=== PATIENT | female | born 2005 | race Caucasian/White ===

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

== ENCOUNTER 2024-02-21 18:46 | Emergency (ER) | payer BC, SELFPAY ==
[2024-02-21 18:50] VITALS: BP 139/69; PULSE 105; RESP 28; TEMP 36.9; O2SAT 97; BMI 29.8
--- NOTE | 2024-02-21 19:03 | ED.ALLEREA ---
HPI - Allergic Reaction General Chief complaint: Allergic Reaction Stated complaint: Peanut allergy, ate nuts, took epi, diff breathing Time Seen by Provider: 02/21/24 18:48 History of Present Illness HPI narrative: This 18-year-old female comes in because of an allergic reaction. She states that she was eating some chocolate ice cream in began to feel some tightness in her throat. She reports a history of allergy to peanuts and does carry an EpiPen. She did administer epinephrine prior to arrival here and comes in for observation. She arrives with normal vital signs except for mild tachycardia and tachypnea. She does endorse some anxiety symptoms relating to all this. She is not showing any sign of rash or angioedema and has normal blood pressure. Related Data Home Medications ?Medication ?Instructions ?Recorded ?Confirmed epinephrine 0.3 mg/0.3 mL 0.3 ml IM Q5-15M PRN 03/04/23 04/12/23 injection, auto-injector (EpiPen) fluoxetine 20 mg capsule 30 mg PO DAILY 03/04/23 04/12/23 Previous Rx's ?Medication ?Instructions ?Recorded methylprednisolone 4 mg tablets in See Rx Instructions PO .COMPLEX 02/21/24 a dose pack (Medrol (Kadeem)) #21 ea Allergies Allergy/AdvReac Type Severity Reaction Status Date / Time peanut Allergy Severe Anaphylaxis Verified 04/12/23 14:53 soy Allergy Severe Anaphylaxis Verified 04/12/23 14:53 Review of Systems Status of ROS Reports: 10 or more systems reviewed and unremarkable except as noted in History and below Narrative Constitutional: No fevers, no weight gain or loss. Eyes: No discharge. No vision changes. HENT: No congestion, no sore throat, no ear pain. Cardiovascular: No chest pain, no palpitations. Respiratory: No shortness of breath, no wheezes, no cough. Gastrointestinal: No abdominal pain, no vomiting, no diarrhea. Genitourinary: No dysuria, no hematuria. Musculoskeletal: Normal range of motion. Skin: No rashes, no pruritis. Neurological: No dizziness, weakness, sensory change, speech change. Endo/Heme/Allergies: No bruising or bleeding. No polydipsia. Pysch: no suicidality, no insomnia. All other systems reviewed and are negative. PFSH PFSH Social History Smoking Status: Never smoker Do you use any of these nicotine containing products: None Second hand tobacco smoke exposure: No How often do you have a drink containing alcohol: never AUDIT-C Alcohol total score: 0 Non-prescribed substance use: denies use Exam Narrative: Exam Narrative: Constitutional: Well-developed, well-nourished, no acute distress. HEENT: Normocephalic, atraumatic. Neck: Normal range of motion. Nontender. Supple. Heart: Intact distal pulses. Lungs: No chest discomfort. No wheezes, rhonchi, or rales. Abdomen: Nontender. Back: Normal range of motion. Extremities: Normal range of motion. No injury. Skin: Intact. No rash. Warm. No erythema or pallor. Neurologic: No altered sensation. No weakness. Alert and oriented. Psychiatric: No suicidality. No anxiety or depression. No insomnia. Nursing notes and vitals signs are reviewed. Const: Vital Signs, click to edit/add: Vital Signs - 24 hr 02/21/24 18:50 Temperature 98.4 F Pulse Rate [Pulse Oximeter] 105 H Respiratory Rate 28 H Blood Pressure [Ri ght Upper Arm] 139/69 Pulse Oximetry 97 Oxygen Delivery Me thod Room Air Course Vital Signs Vital signs: Initial Vital Signs Temperature 98.4 F 02/21/24 18:50 Temperature Source Temporal Artery Scan 02/21/24 18:50 Pulse Rate 105 H 02/21/24 18:50 Respiratory Rate 28 H 02/21/24 18:50 Blood Pressure 139/69 02/21/24 18:50 Blood Pressure Mean 92 02/21/24 18:50 Blood Pressure Position Supine 02/21/24 18:50 Pulse Oximetry 97 02/21/24 18:50 Oxygen Delivery Method Room Air 02/21/24 18:50 Vital Signs Temperature 98.4 F 02/21/24 18:50 Pulse Rate 105 H 02/21/24 18:50 Respiratory Rate 28 H 02/21/24 18:50 Blood Pressure 139/69 02/21/24 18:50 Pulse Oximetry 97 02/21/24 18:50 Oxygen Delivery Method Room Air 02/21/24 18:50 Temperature 98.4 F 02/21/24 18:50 Pulse Rate 105 H 02/21/24 18:50 Respiratory Rate 28 H 02/21/24 18:50 Blood Pressure 139/69 02/21/24 18:50 Pulse Oximetry 97 02/21/24 18:50 Oxygen Delivery Method Room Air 02/21/24 18:50 MDM - Allergic Reaction MDM Narrative Medical decision making narrative: This patient comes in with possibility of a reaction due food. She reports an allergy to peanuts and did not take any peanuts but was instead eating chocolate ice cream and began to have some symptoms that triggered anxiety. She administered epinephrine prior to arrival and comes in here with normal vital signs. 2 attempts were made at placing an IV and then this was discontinued. Patient did receive oral doses of Benadryl 25 mg and dexamethasone 10 mg. She will be observed for 4 hours at her request. She should be okay to return home. Discharge Plan Discharge Clinical Impression: Allergic reaction Patient Disposition: Home, Self-Care Condition: Stable Additional Instructions: Take medication as prescribed and needed. Follow up with MD return if worsening. Prescriptions: New methylprednisolone [Medrol (Kadeem)] 4 mg tablets,dose pack See Rx Instructions .ROUTE .COMPLEX Qty: 21 0RF Rx Instructions: orally per package directions No Action epinephrine [EpiPen] 0.3 mg/0.3 mL auto-injector 0.3 ml IM Q5-15M PRN Rx Instructions: do not exceed 3 doses per episode fluoxetine 20 mg capsule 30 mg PO DAILY Follow Up/Referrals: Provider,Not a Local [Primary Care Provider] - Stand Alone Forms: [employer] Info Instructions
[2024-02-21] MEDS: diphenhydrAMINE 25 MG CAPSULE PO (19:12)
[2024-02-21] MEDS: dexAMETHasone 10 MG/ML inj PO (19:12)
[2024-02-21 19:21] VITALS: PULSE 82; O2SAT 99
[2024-02-21 19:30] VITALS: PULSE 67; O2SAT 99
[2024-02-21] MEDS: FAMOTIDINE 20 MG TABLET PO (19:36)
[2024-02-21 19:46] VITALS: RESP 20
[2024-02-21 19:57] VITALS: PULSE 70; O2SAT 100
[2024-02-21 20:38] VITALS: PULSE 83; RESP 20; O2SAT 100
--- NOTE | 2024-02-21 21:27 | ED.NURSE ---
Patient reports feeling better and requesting to discharge home.
== END 2024-02-21 21:28 | disposition home or self-care (01) ==
LOC: ED 19:32
PROVIDERS: Emergency Provider Emergency Medicine Emergency Medical Services
DX: T78.1XXA Other adverse food reactions, not elsewhere classified, initial encounter (principal)
CPT/HCPCS: 99283; 99285; A9270; J1100

== ENCOUNTER 2024-06-04 23:13 | Emergency (ER) | payer BC, SELFPAY ==
--- OUTSIDE RECORDS SUMMARY | 2024-06-04 23:15 | XMS_ITS | Clinical Summary ---
Author Organization [facility] Address [address] [place] [id number] Care Team Providers Care Director Writing Name Role Phone Pooja Lee Primary Care Provider Unava ilable Allergies Active Allergy Reactions Criticality Noted Date Comments Peanut Hives,Nausea Only 06/03/2011 Soybean Oil Other - Describe In Comment Field 0 09/24/2017 Medications budesonide (PULMICORT FLEXHALER) 180 mcg/Inhalation inhaler Inhale 180 mcg by mouth 2 times daily. 1 Inhaler 0 2 Active albuterol (PROVENTIL; VENTOLIN) 90 mcg/actuation inhaler Inhale 2 Puffs by mouth 4 times daily. 0 2 Active EPINEPHrine (EPIPEN) 0.3 mg/0.3 mL injection 0 Active FLUoxetine (PROZAC) 10 mg capsule Take 10 mg by mouth. Active EPINEPHrine (EPIPEN) 0.3 mg/0.3 mL injectionIndic ations:Allergi c reaction, initial encounter Inject 0.3 mg intramuscular one time if needed for Allergic Reaction (use in case of severe allergic reaction) for up to 1 dose. 2.07 Each 1 Active Active Problems Problem Noted Date Diagnosed Date Asthma Anaphylaxis Encounters Date Type Department Care Team Description 04/04/2024 Travel from Last 3 Months Family History Medical History Relation Name Comments Cancer Father Cancer-breast No Family History Cancer-colon No Family History Cancer-ovarian No Family History Relation Name Status Comments Father Social History Tobacco Use Types Packs/Day Years Used Date Smoking Tobacco: Never Smokeless Tobacco: Never Alcohol Use Standard Drinks/Week Comments No 0 (1 standard drink = 0.6 oz pur e alcohol) Social Connections Answer Date Recorded Frequency of Communication with Friends and Fami ly Not on file 04/09/2021 Financial Resource Strain Answer Date R ecorded Difficulty of Paying Living Expenses Not on file 04/09/2021 Difficulty of Paying Living Expenses Not on file 04/09/2021 Comments No Sex and Gender Information Value Date Recorded Sex Assigned at Not on file 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 Gender Identity Not on file Sexual Orientation Not on file Obstetrics History Last Filed Vital Signs Vital Sign Reading Time Taken Comments Blood Pressure 133/75 09/24/2023 9:48 PM CDT Pulse 69 09/24/2023 9:48 PM CDT Temperature 36.8 C (98.3 F) 09/24/2023 9:48 PM CDT Respiratory Rate 18 09/24/2023 9:48 PM CDT Oxygen Saturation 99% 09/24/2023 9:48 PM CDT Inhaled Oxygen Concentration - - Weight 87.3 kg (192 lb 8 oz) 09/24/2023 9:48 PM CDT Height 171.5 cm (5' 7.5) 09/24/2023 9:48 PM CDT Body Mass Index 29.7 09/24/2023 9:48 PM CDT Plan of Treatment Health Maintenance Due Date Last Done Comments Well Child Check for age 3-20 02/28/2007 Tdap 2015 Depression screening for age 12+ 2016 HIV for age 15-65 2019 HPV series for age 9-26 (1 - 3-dose series) 2019 BMI (ht and wt on same day) for age 18+ 2022 Hepatitis C screening for age 18-79 2022 COVID-19 vaccine series ( season) 2023 01/10/2023, 04/22/2021, 09/11/2020, Additional history exists Influenza for age 9-49 12/09/2023 Tetanus booster 2024 Meningococcal series for age 11-21 Aged Out No longer eligible based on patient's age to complete this topic Pneumococcal series for age 6-49 Aged Out No longer eligible based on patient's age to complete this topic Insurance BLUE CROSS OF NON-NM-ITS Care Teams Director Writing Relationship Specialty Start Date End Date Pooja Lee PA [address] [facility] [address] [place] [address] PCP - General Physician Apartment Leasing Manager 03/08/15
[2024-06-04 23:33] VITALS: BP 133/77; PULSE 75; RESP 16; TEMP 36.6; O2SAT 98; BMI 29.8
[2024-06-04] MEDS: ONDANSETRON ODT 4 MG TAB PO (23:33)
[2024-06-05 00:20] VITALS: TEMP 36.6
[2024-06-05] MEDS: LACTATED RINGERS 1000 ML 1,000 ML 2000 ML IV (00:20)
[2024-06-05] MEDS: KETOROLAC 15 MG/ML inj IVP (00:20)
--- NOTE | 2024-06-05 00:20 | ED.GENADULT ---
HPI - General Adult General Chief complaint: Nausea/Vomiting Stated complaint: Vomiting Time Seen by Provider: 06/05/24 00:01 Source: patient Mode of arrival: ambulatory Limitations: no limitations History of Present Illness HPI narrative: 19-year-old female presents the emergency department for evaluation of nausea and vomiting with mild epigastric area abdominal pain. No trauma or injury. Friend with similar symptoms. Lots of norovirus in the community right now. No fever. No prior history of GI surgeries. No history of pancreatitis, excessive alcohol use or cannabis use. Symptoms initially started about 18 hours ago and had a couple bouts of vomiting early in the morning but then symptoms improved. Return this evening. Has not tried any [id number] medications to help with symptoms. No bloody vomit, no diarrhea, no bloody stools. Not prone to episodes of this nature. Past medical history notable for depression and anxiety. Reports use of fluoxetine 30 mg once daily as her only home medication. Nonsmoker. Allergies to peanuts and soy. ROS is notable for GI symptoms as above only, otherwise denies times 12 systems. Related Data Home Medications ?Medication ?Instructions ?Recorded ?Confirmed epinephrine 0.3 mg/0.3 mL 0.3 ml IM Q5-15M PRN 03/04/23 04/12/23 injection, auto-injector (EpiPen) fluoxetine 20 mg capsule 30 mg PO DAILY 03/04/23 04/12/23 Previous Rx's ?Medication ?Instructions ?Recorded methylprednisolone 4 mg tablets in See Rx Instructions PO .COMPLEX 02/21/24 a dose pack (Medrol (Kadeem)) #21 ea Allergies Allergy/AdvReac Type Severity Reaction Status Date / Time peanut Allergy Severe Anaphylaxis Verified 04/12/23 14:53 soy Allergy Severe Anaphylaxis Verified 04/12/23 14:53 [facility] Social History Smoking Status: Never smoker Do you use any of these nicotine containing products: None Second hand tobacco smoke exposure: No How often do you have a drink containing alcohol: never AUDIT-C Alcohol total score: 0 Non-prescribed substance use: denies use Exam Const: Vital Signs, click to edit/add: Vital Signs - 24 hr 06/04/24 23:33 Temperature 98 F Pulse Rate [Pulse Oximeter] 75 Respiratory Rate 16 Blood Pressure [Le ft Upper Arm] 133/77 Pulse Oximetry 98 Oxygen Delivery Me thod Room Air Documenting provider has reviewed patient's vital signs: yes Common normals: no apparent distress General appearance: cooperative Other: Appears mildly ill, no initial signs of sepsis or fever. HENMT: Common normals: moist oral mucous membranes, oropharynx normal and dentition normal Face and sinus: normal facial exam Eye: Common normals: conjunctivae normal General eye: normal appearance of both eyes Conjunctiva: conjunctiva(e) normal Resp: Common normals: normal respiratory effort, no use of accessory muscles and clear to auscultation bilaterally Effort & inspection: able to speak in complete sentences Auscultation: clear to auscultation bilaterally Cardio: Common normals: regular rate, regular rhythm, S1 normal heart sound, S2 normal heart sound and no murmurs Rate: regular rate Rhythm: regular rhythm Heart sounds: S1 normal and S2 normal GI: Common normals: Normal to inspection, nondistended, normoactive bowel sounds present, soft to palpation, no hepatosplenomegaly and no masses Palpation: soft and no hepatosplenomegaly Other: Very mild tenderness to suprapubic and epigastric areas. Certainly no rebound tenderness or guarding. Exam not easily reproducible. : Common normals: no CVA tenderness Bladder/kidney exam: no CVA tenderness Back & Pelvis: Common normals: no CVA tenderness Extremity: Common normals: normal to inspection and normal capillary refill Psych: Attitude: engaged Activity/motor behavior: appropriate eye contact Insight: fair Judgement: fair Skin: Common normals: no rashes or lesions noted General skin exam: no rashes or lesions noted Course Course ED Course: 19-year-old female with intermittent vomiting, normal stools, no signs of fever, tachycardia or hypotension. Exam is suggestive of viral gastroenteritis with no alarming features. Patient was given 4 mg of oral Zofran prior to my our arrival form his shift is still having some retching though has not had any kat vomiting since. She does not seem to have high-level coping skills to deal with this minor illness. Will place peripheral IV, give 1 L of LR. Additional 4 mg of IV Zofran and 15 of IV Toradol. Counseled patient that unfortunately she is going to remain symptomatic but there are no features of severe disease. She will be discharged after the fluids and medications with home Zofran. Counseled on [id number] Tylenol, ibuprofen, Imodium as well as prescription given for additional Zofran. Off school/work for 24-30 hours, then may attempt return. Alarm symptoms reviewed that would warrant ED presentation. Vital Signs Vital signs: Initial Vital Signs Temperature 98 F 06/04/24 23:33 Temperature Source Temporal Artery Scan 06/04/24 23:33 Pulse Rate 75 06/04/24 23:33 Respiratory Rate 16 06/04/24 23:33 Blood Pressure 133/77 06/04/24 23:33 Blood Pressure Mean 95 06/04/24 23:33 Blood Pressure Position Sitting 06/04/24 23:33 Pulse Oximetry 98 06/04/24 23:33 Oxygen Delivery Method Room Air 06/04/24 23:33 Vital Signs Temperature 98 F 06/04/24 23:33 Pulse Rate 75 06/04/24 23:33 Respiratory Rate 16 06/04/24 23:33 Blood Pressure 133/77 06/04/24 23:33 Pulse Oximetry 98 06/04/24 23:33 Oxygen Delivery Method Room Air 06/04/24 23:33 Temperature 98 F 06/04/24 23:33 Pulse Rate 75 06/04/24 23:33 Respiratory Rate 16 06/04/24 23:33 Blood Pressure 133/77 06/04/24 23:33 Pulse Oximetry 98 06/04/24 23:33 Oxygen Delivery Method Room Air 06/04/24 23:33 Medications Administered Medications: Generic Name Dose Route Start Last Admin Trade Name Freq PRN Reason Stop Dose Admin Ondansetron HCl 4 mg 06/04/24 23:29 06/04/24 23:33 Ondansetron Odt 4 Mg Tab PO 06/04/24 23:30 4 mg ONCE ONE Administration Discharge Plan Discharge Clinical Impression: Gastroenteritis Patient Disposition: Home w/ Parent or Adult Condition: Improved Instructions: Gastroenteritis (DC) Additional Instructions: As we discussed, your symptoms are consistent with viral norovirus, we are seeing a lot of this go through the community right now. Unfortunately the medications available will only ?lightening the load? of ill feeling and not relieved her symptoms completely. With anti nausea medicine, often people are able to tolerate at least enough liquids to stay hydrated though will not eliminate the vomiting completely. Symptoms tend to last for 2-5 days. Diarrhea often accompanies. It is okay to use [id number] Imodium 2-4 mg every 2 hours as needed for diarrhea. Mild abdominal discomfort, headache and fatigue or common. It is okay to use Tylenol and/or ibuprofen for these symptoms as well. I have provided you with a prescription for ondansetron, also known as Zofran, a common anti nausea medication. Use 1-2 tablets up to every 4 hours, max of 6/24 hours to help reduce the vomiting though it is unlikely to eliminate it completely. Try to drink as much fluids as possible and eat small amounts of soft bland foods. Off of school/work for today but should be able to return on the with medications. You should return to the emergency department if you have high fever over 100.4, severe weakness, bloody stools or other alarming symptoms. Activity Level: Activity as Tolerated Discharge Diet: Regular Prescriptions: No Action methylprednisolone [Medrol (Kadeem)] 4 mg tablets,dose pack See Rx Instructions .ROUTE .COMPLEX Qty: 21 0RF Rx Instructions: orally per package directions epinephrine [EpiPen] 0.3 mg/0.3 mL auto-injector 0.3 ml IM Q5-15M PRN Rx Instructions: do not exceed 3 doses per episode fluoxetine 20 mg capsule 30 mg PO DAILY Follow Up/Referrals: Provider,Not a Local [Primary Care Provider] - Stand Alone Forms: [email or web address] Info Instructions
[2024-06-05] MEDS: ONDANSETRON 2 MG/ML inj 4 MG IVP (00:21)
--- OUTSIDE RECORDS SUMMARY | 2024-06-05 00:36 | XMS_ITS | Clinical Summary ---
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
[2024-06-05 01:41] VITALS: BP 126/63; PULSE 68; RESP 16; O2SAT 99
== END 2024-06-05 01:42 | disposition home or self-care (01) ==
PROVIDERS: Emergency Provider Family Medicine
DX: K52.9 Noninfective gastroenteritis and colitis, unspecified (principal)
CPT/HCPCS: 96374; 96375; 99283; A9270; J1885; J2405; J7120